=== PATIENT | female | born 1975 | race Hispanic/Latino ===

== ENCOUNTER 2017-05-03 08:28 | Observation (INO) | payer BC ==
[2017-05-03] MEDS ORDERED: Nitroglycerin 2% Ointment 1 INCH/1 GM Packet ONE (08:52)
[2017-05-03] MEDS ORDERED: Famotidine/PF 20 mg/2ml Vial ONE (08:52)
--- NOTE | 2017-05-03 09:16 | RAD ---
PORTABLE AP CHEST: Date: 05-03-17 History: Midchest pain that started last night. Comparison: 07-21-03 FINDINGS: Cardiac silhouette and pulmonary vasculature are within normal limits. Lungs remain clear. There has been no interval change from prior study. IMPRESSION: No acute cardiopulmonary process. POS: [facility]
[2017-05-03 09:24] LABS: Hematocrit 40.1 % (36.0-47.0); Mean Platelet Volume 12.2 fL (7.4-10.4); Red Blood Cell (RBC) Count 4.64 mill/uL (4.20-5.40); White Blood Cell (WBC) Count 5.7 thou/uL (4.8-10.8)
[2017-05-03 09:38] LABS: #Basophils 0.1 thou/uL (0.0-0.2); #Eosinphils 0.1 thou/uL (0.0-0.7); #Lymphocytes 1.3 thou/uL (1.20-3.40); #Monocytes 0.4 thou/uL (0.11-0.59); #Neutrophils 3.9 thou/uL (1.40-6.50); %Basophils 1.3 % (0.0-1.0); %Eosinophils 0.9 % (0.0-10.0); %Lymphocytes 22.6 % (21.0-51.0); %Monocytes 6.1 % (0.0-10.0); ALT (SGPT) 8 U/L (8-55); AST (SGOT) 10 U/L (5-34); Alkaline Phosphatase 93 U/L (40-150); Anion Gap 15 mmol/L (10-20); BUN (Urea Nitrogen) 12 mg/dL (7.0-18.7); Bilirubin, Total 0.3 mg/dL (0.2-1.2); CK (CPK) 45 U/L (29-168); Calc. Creatinine Clearance 0 mL/min (70-130); Calcium 9.1 mg/dL (7.8-10.44); Carbon Dioxide 22 mmol/L (22-29); Chloride 103 mmol/L (98-107); Estimated GFR-MDRD 84; Globulin 3.1 g/dL (2.4-3.5); Lipase 55 U/L (8-78); Protein, Total 7.1 g/dL (6.0-8.3); Troponin I Less than 0.010 ng/mL (< 0.028)
[2017-05-03] MEDS ORDERED: Mag-Al Plus 1200 MG/1200 MG/120 MG/30 ML UDCUP ONE (10:23)
[2017-05-03] MEDS ORDERED: Lidocaine Viscous Sol 2% 15 ml UD Cup ONE (10:23)
[2017-05-03 12:18] LABS: Troponin I Less than 0.010 ng/mL (< 0.028)
[2017-05-03 13:09] VITALS: BMI 24.5
[2017-05-03] MEDS ORDERED: Mag-Al 1200 mg/1200 mg/30 ML UDCUP PO PRN (13:36)
[2017-05-03] MEDS ORDERED: Sodium Chloride 0.65% Nasal 44 ML BOT EA NARE PRN (13:36)
[2017-05-03] MEDS ORDERED: Loperamide HCl 2 MG CAP PO PRN (13:36)
[2017-05-03] MEDS ORDERED: Dextrose 5% in Water 1,000 ML IV PRN (13:36)
[2017-05-03] MEDS ORDERED: hydrALAZINE 20 MG/ML VIAL SLOW IVP PRN (13:36)
[2017-05-03] MEDS ORDERED: Loratadine 10 MG TAB PO PRN (13:36)
[2017-05-03] MEDS ORDERED: Artificial Tears 18 DROP/0.9 ML EA EYE PRN (13:36)
[2017-05-03] MEDS ORDERED: Ondansetron ODT 4 MG TAB PO PRN (13:36)
[2017-05-03] MEDS ORDERED: HumaLOG 300 UNITS/3 ML VIAL SC PRN (13:36)
[2017-05-03] MEDS ORDERED: Diabetic Tussin 200 MG/10 ML UDCUP PO PRN (13:36)
[2017-05-03] MEDS ORDERED: Ondansetron HCl/PF 4 MG/2 ML Vial IVP PRN (13:36)
[2017-05-03] MEDS ORDERED: HYDROcodone/Acetaminophen 5/325 mg Tablet PO PRN (13:36)
[2017-05-03] MEDS ORDERED: Zolpidem Tartrate 5 MG TAB PO PRN (13:36)
[2017-05-03] MEDS ORDERED: Senokot 8.6 MG TAB PO PRN (13:36)
[2017-05-03] MEDS ORDERED: Milk Of Magnesia 30 ML UDCUP PO PRN (13:36)
[2017-05-03] MEDS ORDERED: Dextrose 50% Abboject 50 ML SYRINGE SLOW IVP PRN (13:36)
[2017-05-03] MEDS ORDERED: Acetaminophen 325 MG TAB PO PRN (13:36)
[2017-05-03] MEDS ORDERED: Eucerin (Mineral Oil/Petrolatum,White) 30 gm Jar TOP PRN (13:36)
--- NOTE | 2017-05-03 14:34 | HP ---
PRIMARY CARE PHYSICIAN: Elisa Clemente M.D. REASON FOR ADMISSION: Chest pain. HISTORY OF PRESENT ILLNESS: A 42-year-old female with a history of diabetes type 2 on metformin therapy who initially went to [facility] for evaluation of chest pain and subsequently she was directed to [facility] Room, patient went there because she experienced chest pain last night around 11:00 p.m. which was substernal in location. She did not have any associated nausea at that time, but she was feeling uncomfortable in her chest that lasted for a few minutes and subsided by itself and subsequently she was able to sleep. This morning when she woke up at that time, she was having similar chest pain which was substernal in location with nausea. At that time, she was feeling mild shortness of breath. She was feeling pressure sensation and that is why she decided to go to evaluation for checkout. She never experienced this type of symptoms before. She denies any burning discomfort. She denies any heartburn. She denies any vomiting. She denies any epigastric abdominal pain. She denies any dyspepsia symptoms. She denies any UTI symptoms. She denies any relation of chest pain with food, respiration or activity. There was no radiation. She describes intensity of pain about 5/10 in intensity. In the emergency room, she was treated with GI cocktail, Pepcid, aspirin, nitropatch and after that, the patient's pain symptoms completely improved and when I saw this patient, at that time she was completely asymptomatic. REVIEW OF SYSTEMS: The following complete review of systems was negative, unless otherwise mentioned in the HPI or below: CONSTITUTIONAL: Weight loss or gain, ability to conduct usual activities. SKIN: Rash, itching. EYES: Double vision, pain. ENT/MOUTH: Nose bleeding, neck stiffness, pain, tenderness. CARDIOVASCULAR: Palpitations, dyspnea on exertion, orthopnea. RESPIRATORY: Shortness of breath, wheezing, cough, hemoptysis, fever or night sweats. GASTROINTESTINAL: Poor appetite, abdominal pain, heartburn, nausea, vomiting, constipation, or diarrhea. GENITOURINARY: Urgency, frequency, dysuria, nocturia. MUSCULOSKELETAL: Pain, swelling. NEUROLOGIC/PSYCHIATRIC: Anxiety, depression. ALLERGY/IMMUNOLOGIC: Skin rash, bleeding tendency. Please see my HPI for pertinent positives and negatives. All other review of system reviewed and negative except as mentioned in the HPI. PAST MEDICAL HISTORY: Diabetes type 2, on metformin therapy. PAST SURGICAL HISTORY: Tubal ligation. PAST PSYCHIATRIC HISTORY: Anxiety and depression, but patient is not on any medication. SOCIAL HISTORY: Patient is and lives at home with the family. No history of tobacco, alcohol or illicit drug abuse. She is working as housekeeping. ALLERGIES: No known drug allergies. FAMILY HISTORY: Grand mother had heart disease. No family history of CVA or cancer. CURRENT HOME MEDICATIONS: Metformin 500 mg p.o. b.i.d. EMERGENCY ROOM COURSE: Patient is given GI cocktail, Pepcid 20 mg IV, aspirin 324 mg, and nitropatch. PHYSICAL EXAMINATION: VITAL SIGNS: On arrival, blood pressure 140/94, pulse 86, respiratory rate 16, temperature 98.3, saturation 100% on room air, weight 58.9 kilograms. GENERAL: Patient is currently alert, awake, in no obvious acute distress. HEENT: Normocephalic, atraumatic. Eyes: Pupils round, reactive to light. Extraocular muscles intact. ENT: Oropharynx within normal limits. Moist mucous membranes. No oral lesions. No pharyngeal erythema, no exudate. NECK: Supple. Range of motion is normal. No meningeal signs of irritation. LUNGS: Clear to auscultation without any rhonchi or rales. CARDIAC: S1, S2 regular without any murmur. ABDOMEN: Soft, bowel sounds present, nontender, nondistended. No organomegaly , no mass, no suprapubic tenderness. BACK: Unremarkable, no CVA tenderness. EXTREMITIES: Upper extremity passive movement of all joints are normal. Lower extremities: No edema. Good peripheral pulsation. SKIN: No skin rash. HEMATOLOGICAL SYSTEM: No lymphadenopathy. PSYCHIATRIC: Normal affect. SIGNIFICANT LABORATORY DATA: EKG based on my review reveals normal sinus rhythm without any acute ischemic changes. Chest x-ray based on my review, no acute cardiopulmonary processes. CBC: WBC 5.7, hemoglobin 13.7, platelets 175. D-dimer 0.34. BMP: Sodium 134 , potassium 4.7, chloride 103, carbon dioxide 22, BUN 12, creatinine 0.76, glucose 376, calcium 9.1. LFT: AST 10, ALT 8, alkaline phosphatase 93, albumin 4.0, lipase 55. Cardiac enzymes negative x2. ASSESSMENT AND PLAN: 1. Chest pain. Patient's chest pain description is atypical. Patient has risk factors for coronary artery disease including diabetes. At this point, the electrocardiogram is normal and cardiac enzymes negative x2. We have ruled out acute coronary syndrome. Underlying ischemia cannot be entirely excluded and that is why we will perform exercise Cardiolite stress test. Meanwhile, we will continue with aspirin 325 mg p.o. daily, nitropatch q.8 hourly and we will check lipid profile tomorrow morning for risk stratification. 2. Diabetes type 2, not well controlled. We will check hemoglobin A1c to see overall control and will continue with Levemir insulin 15 units subcu daily and metformin 500 mg p.o. daily. 3. Deep venous thrombosis prophylaxis not needed because we are expecting discharge in 24 hours. 4. Gastrointestinal prophylaxis, Pepcid 20 mg p.o. b.i.d. 5. CODE STATUS: The patient is FULL CODE. Patient's is surrogate decision maker. Disposition plan based on stress test results, likely within 24 hours. Plan of care discussed with the patient and family member at bedside. This patient's D-dimer is negative and this patient does not have any thromboembolic risk factors, patient already had breakfast today, so we have to do stress test tomorrow. JENAED
[2017-05-03] MEDS ORDERED: Nitroglycerin 2% Ointment 1 INCH/1 GM Packet TOP SCH (15:00)
[2017-05-03] MEDS ORDERED: Regadenoson 0.4 MG/5 ML SYRINGE ONE (15:48)
[2017-05-03] MEDS: Nitroglycerin 2% Ointment 1 INCH/1 GM Packet TOP SCH ×2 (16:30→20:46)
[2017-05-03] MEDS: HumaLOG 300 UNITS/3 ML VIAL SC PRN (17:14)
[2017-05-03] MEDS: Famotidine 20 MG TAB PO SCH (20:41)
[2017-05-03] MEDS ORDERED: Non-Formulary Item 1 EACH (Levemir Flexpen [Levemir Flexpen] 15 UNITS) SC SCH (21:00)
[2017-05-03] MEDS ORDERED: FLU VACC QS2017-18 36 mo. & older 0.5 ML SYRINGE IM ONE (21:00)
[2017-05-03] MEDS ORDERED: Insulin Detemir 100 UNITS/ML 15 UNITS in Pre-Filled Syringe 1 EACH SC SCH (21:00)
[2017-05-04] MEDS: Nitroglycerin 2% Ointment 1 INCH/1 GM Packet TOP SCH ×2 (04:00→15:09)
[2017-05-04 04:36] LABS: Hemoglobin A1c 13.6 % (4.0-6.0)
--- NOTE | 2017-05-04 07:44 | PDOC.PN ---
- Subjective Encounter Start Date: 05/04/17 Encounter Start Time: 08:00 Subjective: No more active chest pain. Just soreness lower sternum with movement of -: upper body. Stress test this AM - Objective Resuscitation Status: Resuscitation Status FULL:Full Resuscitation MAR Reviewed: Yes Vital Signs & Weight: Vital Signs (12 hours) Temp Pulse Resp BP Pulse Ox 05/04/17 04:05 98.2 F 68 14 95/54 L 98 05/03/17 23:40 98.2 F 68 14 107/59 L 99 05/03/17 20:40 98.2 F 76 16 Weight Weight 147 lb 8 oz I&O: 05/03/17 05/04/17 05/05/17 06:59 06:59 06:59 Intake Total 1180 Balance 1180 Result Diagrams: 05/03/17 09:04 05/03/17 09:04 Additional Labs: Accuchecks 05/04/17 05/03/17 05/03/17 04:07 20:23 16:52 POC Glucose 247 H 191 H 329 H Phys Exam - Physical Examination Constitutional: NAD HEENT: moist MMs Respiratory: no wheezing, no rales, no rhonchi, clear to auscultation bilateral TTP lower sternum reproduces pain Cardiovascular: RRR, no significant murmur Gastrointestinal: soft, positive bowel sounds Neurological: non-focal, moves all 4 limbs Psychiatric: normal affect, A&O x 3 Dx/Plan (1) Chest pain Code(s): R07.9 - CHEST PAIN, UNSPECIFIED Status: Acute (2) Diabetes mellitus type 2 in nonobese Code(s): E11.9 - TYPE 2 DIABETES MELLITUS WITHOUT COMPLICATIONS Status: Chronic Comment: Uncontrolled on Metformin and Levemir 15u - Plan cont current plan of care Stress test today, home if negative * . - Discharge Day Encounter end time: 08:30
[2017-05-04] MEDS ORDERED: metFORMIN XR 500 MG TAB PO SCH (08:00)
[2017-05-04] MEDS ORDERED: Aspirin 325 MG TAB PO SCH (09:00)
[2017-05-04] MEDS: Famotidine 20 MG TAB PO SCH (09:00)
[2017-05-04] MEDS ORDERED: FLU VACC QS2017-18 36 mo. & older 0.5 ML SYRINGE IM ONE (09:00)
[2017-05-04] MEDS: HumaLOG 300 UNITS/3 ML VIAL SC PRN (11:58)
[2017-05-04 11:59] VITALS: BP 109/67; TEMP 98.3
--- NOTE | 2017-05-04 13:59 | NM ---
NUCLEAR MEDICINE CARDIAC MYOCARDIAL PERFUSION SPECT EJECTION FRACTION STUDY WALL MOTION CINE: Date: 05/04/17 HISTORY: 42-year-old female with chest pain. TECHNIQUE: Number of days: 2 Rest study: Tc99m sestamibi (Cardiolite) dose: 28.0 mCi Pharmacologic stress: Lexiscan dose: 0.4 mg Stress study: Tc99m sestamibi (Cardiolite) dose: 32.0 mCi FINDINGS: CARDIAC (MYOCARDIAL PERFUSION) SPECT Distribution of sestamibi is homogeneous throughout the left ventricle, with no fixed or reversible m yocardial perfusion defects. EJECTION FRACTION STUDY EF = 75% WALL MOTION CINE The left ventricular wall motion is normal. There is normal systolic wall thickening. IMPRESSION: Normal. teddy[] POS: [facility]
[2017-05-04] MEDS ORDERED: Regadenoson 0.4 MG/5 ML SYRINGE ONE (15:53)
--- NOTE | 2017-05-04 18:59 | DIS ---
PRIMARY CARE PHYSICIAN: Dr. Elisa Clemente. DIAGNOSES ON ADMISSION: 1. Chest pain. 2. Diabetes mellitus type 2, not well controlled. DIAGNOSES ON DISCHARGE: 1. Chest pain, musculoskeletal, improved. 2. Diabetes mellitus type 2, insulin-dependent, uncontrolled. CONSULTATIONS: None. PROCEDURES: A nuclear medicine stress test showing no evidence for ischemic disease and a normal ejection fraction. PERTINENT LABORATORY DATA: Normal CBC, negative D-dimer and normal complete metabolic panel except for a sodium of 135 and blood sugars that run in the 200- 300s. Hemoglobin A1c was 13.6. SUMMARY OF HOSPITAL COURSE: This is a 42-year-old female with a history of diabetes mellitus type 2, now insulin-dependent, that is poorly controlled. She came in with chest pain that started the previous evening that had resolved, but then reoccurred when she woke up, substernal in location with mild shortness of breath and some pressure sensation. The pain is worse with any sort of movement of her torso or her arms. The patient was seen in the emergency room, had negative cardiac markers and a negative D-dimer. Given her risk factors with her uncontrolled diabetes, she was put in observation and a stress test was done. Stress test was negative and the patient is being discharged home. Of note, on exam, she is tender to palpation in the lower sternum; this is most likely costochondritis or other musculoskeletal source, so we will send her out with NSAIDs along with some Protonix to protect her stomach. DISCHARGE MANAGEMENT: Discharged to home. DISCHARGE FOLLOWUP: Follow up with primary care physician in the next week. DISCHARGE DIET: Diabetic diet. DISCHARGE MEDICATIONS: 1. Ibuprofen 800 mg 3 times a day as needed for pain, 60 tablets dispensed. 2. Protonix 40 mg daily while taking ibuprofen, 14 tablets dispensed and resume home medications. 3. Levemir 15 units each night. 4. Metformin extended release 500 mg daily. MTDD
--- NOTE | 2017-05-28 12:11 | EKG ---
Test Reason : CHEST PAIN Blood Pressure : / mmHG Vent. Rate : 081 BPM Atrial Rate : 081 BPM P-R Int : 120 ms QRS Dur : 074 ms QT Int : 356 ms P-R-T Axes : 067 075 043 degrees QTc Int : 413 ms Normal sinus rhythm Normal ECG Confirmed by ERLINDA HACKETT MD ([id number]), make up editor FELICIA CA ([id number]) on 05/28/2017 12:10:49 PM Referred By: Confirmed By:ERLINDA HACKETT MD
--- NOTE | 2017-05-28 12:11 | EKG ---
Test Reason : CHEST PAIN Blood Pressure : / mmHG Vent. Rate : 073 BPM Atrial Rate : 073 BPM P-R Int : 146 ms QRS Dur : 080 ms QT Int : 372 ms P-R-T Axes : 061 060 044 degrees QTc Int : 409 ms Normal sinus rhythm with sinus arrhythmia Normal ECG Confirmed by ERLINDA HACKETT MD ([id number]), editor newspaper FELICIA CA ([id number]) on 05/28/2017 12:11:01 PM Referred By: LEW Confirmed By:ERLINDA HACKETT MD
== END 2017-05-04 15:06 | disposition home or self-care (01) ==
LOC: SCSER 08:28 → 2SW 10:22
PROVIDERS: ADMIT Emergency Medicine; ATTEND Emergency Medicine
DX: R07.2 Precordial pain (principal); E11.65 Type 2 diabetes mellitus with hyperglycemia; F41.8 Other specified anxiety disorders; Z79.4 Long term (current) use of insulin; Z79.899 Other long term (current) drug therapy; Z98.51 Tubal ligation status
CPT/HCPCS: 36415; 36416; 71010; 78452; 80053; 80061; 82550; 82553; 83036; 83690; 84484; 85025; 85379; 93005; 93017; 94760; 96374; A4216; A9500; G0378; J1815; J2785; S0028

== ENCOUNTER 2018-11-22 08:08 | Outpatient (CLI) | payer BC ==
--- NOTE | 2018-11-22 08:52 | MMO ---
Bilateral MAMMO Bilat Screen [facility]. CLINICAL HISTORY: Patient is 43 years old and is seen for screening. The patient has no family history of breast cancer. The patient has no personal history of cancer. VIEWS: The views performed were: bilateral craniocaudal with tomosynthesis and bilateral mediolateral oblique with tomosynthesis. MAMMOGRAM FINDINGS: There are scattered fibroglandular densities. There are benign appearing calcifications seen in both breasts. There are no suspicious masses, suspicious calcifications, or new areas of architectural distortion. IMPRESSION: THERE IS NO MAMMOGRAPHIC EVIDENCE OF MALIGNANCY. A ROUTINE FOLLOW-UP MAMMOGRAM IN 1 YEAR IS RECOMMENDED. THE RESULTS OF THIS EXAM WERE SENT TO THE PATIENT. ACR BI-RADS Category 2 - Benign finding MAMMOGRAPHY NOTE: 1. A negative mammogram report should not delay a biopsy if a dominant of clinically suspicious mass is present. 2. Approximately 10% to 15% of breast cancers are not detected by mammography. 3. Adenosis and dense breasts may obscure an underlying neoplasm.
== END 2018-11-22 08:09 | disposition home or self-care (01) ==
LOC: BICMAMMO 08:08
PROVIDERS: ATTEND Family Medicine
DX: Z12.31 Encounter for screening mammogram for malignant neoplasm of breast (principal)
CPT/HCPCS: 77063; 77067

== ENCOUNTER 2021-07-02 10:58 | Outpatient (CLI) | payer BC | END 2021-07-02 10:59 | disposition home or self-care (01) | LOC: BICULT 10:58 | PROVIDERS: ATTEND Family Medicine | DX: Z12.31 Encounter for screening mammogram for malignant neoplasm of breast (principal); E04.1 Nontoxic single thyroid nodule | CPT/HCPCS: 76536; 77063; 77067 ==

== ENCOUNTER 2022-03-31 01:18 | Observation (INO) | payer BC, SELFPAY ==
[2022-03-31] MEDS ORDERED: Ketorolac Tromethamine 30 MG/ML VIAL ONE ×3 (01:35→03:11)
[2022-03-31] MEDS ORDERED: Ondansetron PF 4 MG/2 ML Vial ONE ×3 (01:35→05:25)
[2022-03-31 02:20] LABS: #Eosinphils 0.1 thou/uL (0.0-0.7); #Lymphocytes 1.4 thou/uL (1.20-3.40); #Monocytes 0.4 thou/uL (0.11-0.59); #Neutrophils 5.3 thou/uL (1.40-6.50); %Basophils 0.3 % (0.0-1.0); %Lymphocytes 19.5 % (21.0-51.0); %Monocytes 5.2 % (0.0-10.0); %Neutrophils 74.1 % (42.0-75.0); Hemoglobin 13.2 g/dL (12.0-16.0); Mean Corpuscular HGB CONC 33.2 g/dL (32.0-36.0); Mean Corpuscular Hemoglobin 29.3 pg (27.0-31.0); Mean Corpuscular Volume 88.2 fl (78.0-98.0); Mean Platelet Volume 11.1 fL (7.4-10.4); Platelet Count 221 thou/uL (130-400); RBC Distribution Width 12.7 % (11.5-14.5); Red Blood Cell (RBC) Count 4.51 mill/uL (4.20-5.40); White Blood Cell (WBC) Count 7.2 thou/uL (4.8-10.8)
[2022-03-31 02:27] LABS: BHCG - Serum Negative (NEGATIVE); Pregs Control Background? CLEAR/WHITE (CLR/WHITE); Pregs Control Bar Appear? YES (CONTROL BAR)
[2022-03-31 02:40] LABS: ALT (SGPT) 13 U/L (8-55); AST (SGOT) 15 U/L (5-34); Albumin 4.4 g/dL (3.5-5.0); Alkaline Phosphatase 61 U/L (40-110); Anion Gap 17 mmol/L (10-20); BUN (Urea Nitrogen) 16 mg/dL (7.0-18.7); Bilirubin, Total 0.4 mg/dL (0.2-1.2); Calc. Creatinine Clearance 0 mL/min (70-130); Calcium 8.5 mg/dL (7.8-10.44); Carbon Dioxide 20 mmol/L (22-29); Chloride 101 mmol/L (98-107); Estimated GFR 91; Globulin 3.5 g/dL (2.4-3.5); Glucose 188 mg/dL (70-105); Potassium 4.5 mmol/L (3.5-5.1); Protein, Total 7.9 g/dL (6.0-8.3); Sodium 133 mmol/L (136-145)
[2022-03-31] MEDS ORDERED: Morphine 4 MG/ML VIAL ONE (05:25)
[2022-03-31] MEDS ORDERED: Ondansetron PF 4 MG/2 ML Vial IVP PRN (07:00)
[2022-03-31] MEDS ORDERED: Ondansetron ODT 4 MG TAB SL PRN (07:00)
[2022-03-31 07:50] VITALS: BMI 22.0
[2022-03-31] MEDS: Morphine 4 MG/ML VIAL SLOW IVP PRN ×2 (08:42→13:02)
[2022-03-31] MEDS ORDERED: Iopamidol 370 76% 100 ML VIAL ONE (09:35)
[2022-03-31] MEDS ORDERED: Acetaminophen 325 MG TAB PO PRN (10:43)
[2022-03-31] MEDS ORDERED: Bisacodyl 5 MG TAB PO PRN (10:43)
[2022-03-31] MEDS ORDERED: Acetaminophen 650 MG Suppository PR PRN (10:43)
[2022-03-31] MEDS ORDERED: Senokot S 8.6-50 MG TAB PO PRN (10:43)
[2022-03-31 12:40] LABS: Bacteria/HPF None Seen HPF (None Seen); Bilirubin Negative (Negative); Blood, Urine Negative (Negative); Clarity Clear (Clear); Glucose, Urine (Dipstick) Greater than 1000 mg/dL (Negative); Ketone, Urine Greater than 150 mg/dL (Negative); Leukocyte Negative Leu/uL (Negative); Nitrite Negative (Negative); Protein, Urine (Dipstick) Negative (Neg-Trace); RBC/HPF 0-3 HPF (0-3); Squamous Epithelial 0-3 HPF (0-3); Urobilinogen Normal mg/dL (Less than 2); WBC/HPF 0-3 HPF (0-3); pH, Urine 5.5 (5.0-9.0)
[2022-03-31 12:44] LABS: Specific Gravity, Urine 1.046 (1.002-1.036)
[2022-03-31 12:45] LABS: Urine Culture Reflex No No
[2022-03-31] MEDS ORDERED: FLU VACC QS2022-23(6MOS UP)/PF 60 MCG/0.5 ML SYRINGE IM ONE (16:00)
[2022-03-31 16:47] LABS: Hemoglobin A1c 9.2 % (4.0-6.0)
[2022-03-31] MEDS ORDERED: Cyclobenzaprine 10 MG TAB PO PRN (16:53)
[2022-03-31] MEDS ORDERED: Ibuprofen 800 MG TAB PO PRN (16:53)
[2022-03-31] MEDS ORDERED: Insulin Regular 300 UNITS/3 ML VIAL SC PRN ×2 (16:56)
[2022-03-31] MEDS ORDERED: Dextrose 50% Abboject 50 ML SYRINGE SLOW IVP PRN (16:56)
[2022-03-31] MEDS ORDERED: Dextrose 5% in Water 1,000 ML IV PRN (16:56)
[2022-03-31 17:45] VITALS: BP 115/69; TEMP 98
[2022-03-31] MEDS ORDERED: traMADol HCl 50 MG TAB PO SCH (18:00)
[2022-03-31] MEDS ORDERED: metFORMIN XR 500 MG TAB PO SCH (21:00)
[2022-03-31] MEDS ORDERED: Insulin Glargine 30 UNITS/0.3 ML VIAL SC SCH (21:00)
[2022-03-31] MEDS ORDERED: Famotidine 20 MG TAB PO SCH (21:00)
== END 2022-03-31 19:21 | disposition home or self-care (01) ==
LOC: ERS 01:18 → T4-B 07:21
PROVIDERS: ADMIT Student in an Organized Health Care Education/Training Program; ATTEND Student in an Organized Health Care Education/Training Program
DX: G89.29 Other chronic pain (principal); R10.2 Pelvic and perineal pain; N83.201 Unspecified ovarian cyst, right side; N83.202 Unspecified ovarian cyst, left side; E11.9 Type 2 diabetes mellitus without complications; Z79.84 Long term (current) use of oral hypoglycemic drugs; Z79.899 Other long term (current) drug therapy; Z97.5 Presence of (intrauterine) contraceptive device; Z20.822 Contact with and (suspected) exposure to COVID-19
CPT/HCPCS: 36416; 74177; 76856; 80053; 81001; 83036; 84703; 85025; 96374; 96375; 96376; G0378; J1885; J2270; J2405; Q9967; U0003; U0005